=== PATIENT | female | born 1960 | race Caucasian/White ===

== ENCOUNTER 2023-12-12 12:25 | Emergency (ER) | payer MEDICARE ==
[~2023-12-12] VITALS: Ht 162.6 cm; Wt 86.0 kg
[2023-12-12 12:26] VITALS: TEMP 99.3; O2SAT 96
[2023-12-12 17:31] VITALS: BP 176/94; PULSE 62; RESP 17
[2023-12-12] MEDS: CYCLOBENZAPRINE 10MG TABLET PO ONE (17:31)
[2023-12-12] MEDS: IBUPROFEN 600MG TABLET PO ONE (17:31)
[2023-12-12] MEDS ORDERED: ACET-2708 MT (18:58)
[2023-12-12] MEDS ORDERED: CYCL10TA21 MT (18:58)
== END 2023-12-12 19:22 | disposition home or self-care (01) ==
LOC: ER 12:25
DX: S70.01XA Contusion of right hip, initial encounter (principal); S30.0XXA Contusion of lower back and pelvis, initial encounter; I10 Essential (primary) hypertension; Z98.890 Other specified postprocedural states; W18.30XA Fall on same level, unspecified, initial encounter; Y93.89 Activity, other specified; Y92.89 Other specified places as the place of occurrence of the external cause; Y99.8 Other external cause status
CPT/HCPCS: 72192; 99284